=== PATIENT | male | born 1980 | race Caucasian/White ===

== ENCOUNTER 2019-08-16 13:47 | Inpatient (IN) | payer OTHER ==
[2019-08-16 17:46] VITALS: BMI 22.4
--- NOTE | 2019-08-16 18:36 | HP ---
COWS - Scale Resting Pulse: 0= NE 80 or Below Sweatin= No chills or Flushing Restless Observation: 0= Sits Still Pupil Size: 1= Pupils >than Normal Bone or Joint Aches: 0= None Runny Nose/ Eye Tearin= None GI Upset > 30mins: 0= None Tremor Observation: 1= Tremor Douglas, Not Seen Yawning Observation: 0= None Anxiety or Irritability: 0= None Goose Flesh Skin: 0=Smooth Skin COWS Score: 2 CIWA Score Nausea/Vomitin-No Nausea/No Vomiting Muscle Tremors: 1-None Visible, but Douglas Anxiety: 0-No Anxiety, at Ease Agitation: 0-Normal Activity Paroxysmal Sweats: No Perspiration Orientation: 0-Oriented Tacttile Disturbances: 0-None Auditory Disturbances: 0-None Visual Disturbances: 0-None Headache: 0-None Present CIWA-Ar Total Score: 1 - Admission Criteria [facility] Guidelines: Admission for Medically Managed Detox: Requires at least one of the followin. CIWA greater than 12 2. Seizures within the past 24 hours 3. Delirium tremens within the past 24 hours 4. Hallucinations within the past 24 hours 5. Acute intervention needed for co occurring medical disorder 6. Acute intervention needed for co occurring psychiatric disorder 7. Severe withdrawal that cannot be handled at a lower level of care (continued vomiting, continued diarrhea, abnormal vital signs) requiring intravenous medication and/or fluids 8. Admitting History and Physical - Admission History of Present Illness: 39 yo M no PMH, no PSH, NKDA presents for detox for heroin. Heroin : 1 bundle/ day x 1 yr. last OD 3 mo ago. no narcan kit. last use this am 4 bags I[facility] use SURESH: 6 pack/ day since 11 yo. last drink today oxy: 1 pay / day. 1 yr ago. last use yesterday cocaine: 2 mo ago. cigaretes 1 pk x 2-3 days. started 14 yo denies legal issues, apartment in [facility], [facility] support Admission ROS S - HPI Allergies/Adverse Reactions: Allergies Allergy/AdvReac Type Severity Reaction Status Date / Time No Known Allergies Allergy Verified 08/16/19 17:40 Exam Limitations: No Limitations - Ebola screening Do you have a fever: No - Review of Systems Constitutional: No Symptoms Reported EENT: reports: No Symptoms Reported Respiratory: reports: No Symptoms reported Cardiac: reports: No Symptoms Reported GI: reports: No Symptoms Reported Musculoskeletal: reports: No Symptoms Reported Psychiatric: reports: Judgement Intact, Mood/Affect Appropiate, Orientated x3 Patient History - Smoking Cessation Smoking history: Current every day smoker Have you smoked in the past 12 months: Yes Aproximately how many cigarettes per day: 0.5 Initiated information on smoking cessation: Yes 'Breaking Loose' booklet given: 08/16/19 - Substances abused Alcohol Substance route: Oral Frequency: Daily Amount used: RUM- 1PT Age of first use: 11 Date of last use: 08/16/19 Heroin Substance route: Inhalation Frequency: Daily Amount used: 10BAGS Age of first use: 38 Date of last use: 08/16/19 Other Other (specify): STR OXYCODONE- UNKNOWN DOSE Substance route: Oral Frequency: Daily Amount used: 2 TABS Age of first use: 38 Date of last use: 08/15/19 Crack Substance route: Smoking Frequency: Daily Amount used: $40 Age of first use: 38 Date of last use: 08/16/19 Admission Physical Exam [facility] - Vital Signs Vital Signs: Vital Signs - 24 hr 08/16/19 17:35 Temperature 97.1 F L Pulse Rate 69 Respiratory 18 Rate Blood Pressure 145/78 - Physical General Appearance: Yes: No Apparent Distress, Nourished HEENTM: Yes: Hearing grossly Normal, Normocephalic, Normal Voice, ERWIN Respiratory: Yes: Chest Non-Tender, Lungs Clear, Normal Breath Sounds, No Respiratory Distress, No Accessory Muscle Use Neck: Yes: No masses,lesions,Nodules Cardiology: Yes: Within Normal Limits, Regular Rhythm, Regular Rate, S1, S2. No : JVD, Murmur Abdominal: Yes: Normal Bowel Sounds, Non Tender, Soft. No: Distended Extremities: Yes: Normal Inspection, Non-Tender. No: Calf Tenderness Neurological: Yes: chipper operator II-XII NML intact, Fully Oriented Integumentary: Yes: Normal Color, Dry, Warm - Diagnostic (1) Heroin abuse Current Visit: Yes Status: Acute (2) Alcohol abuse Current Visit: Yes Status: Acute Cleared for Admission [facility] - Detox or Rehab [facility] Level of Care: Medically Managed Inpatient Rehab Admission - Rehab Decision to Admit Inpatient rehab admission?: No
[2019-08-16] MEDS ORDERED: METHOCARBAMOL 500 MG TABLET PO PRN (18:46)
[2019-08-16] MEDS ORDERED: MAGNESIUM CITRATE 300 ML BOTTLE PO PRN (18:46)
[2019-08-16] MEDS ORDERED: MENTHOL/PHENOL 1 EACH UD MM PRN (18:46)
[2019-08-16] MEDS ORDERED: ACETAMINOPHEN 325 MG TABLET (FP) PO PRN ×2 (18:46)
[2019-08-16] MEDS ORDERED: IBUPROFEN 400 MG TABLET (FP) PO PRN (18:46)
[2019-08-16] MEDS ORDERED: MAGNESIUM HYDROX 2400MG/30ML ORAL SUSPENSION 30 ML CUP PO PRN (18:46)
[2019-08-16] MEDS ORDERED: hydrOXYzine PAMOATE 25 MG CAPSULE (FP) PO PRN (18:46)
[2019-08-16] MEDS ORDERED: MAG HYDROX/AL HYDROX/SIMETH 30 ML UNIT-DOSE CUP PO PRN (18:46)
[2019-08-16] MEDS ORDERED: BISMUTH SUBSALICYLATE 524 MG/30 ML UD PO PRN (18:46)
[2019-08-16] MEDS ORDERED: cloNIDine HCL 0.1 MG TABLET PO PRN (20:01)
--- NOTE | 2019-08-16 20:01 | PN ---
Teaching Attending Note Name of Resident: Erica Hawkins ATTENDING PHYSICIAN STATEMENT I saw and evaluated the patient. I reviewed the resident's note and discussed the case with the resident. I agree with the resident's findings and plan as documented. SUBJECTIVE:39 y.o. male requesting detox from opiate use , reports this is his first attempt at detox . heroin : 1 bundle /day via [facility] denies IV use , latest use this afternoon. PMHX /PSHx : denies OBJECTIVE: wnwd Vital Signs - 24 hr 08/16/19 17:35 Temperature 97.1 F L Pulse Rate 69 Respiratory 18 Rate Blood Pressure 145/78 ASSESSMENT AND PLAN: OUD - observation for pt safety and detox when /if symptomatic.
[2019-08-16] MEDS ORDERED: THIAMINE HCL 100 MG TABLET (FP) PO SCH (22:00)
[2019-08-16] MEDS ORDERED: MELATONIN 5 MG TABLETS PO PRN (22:00)
[2019-08-17] MEDS ORDERED: NICOTINE 7 MG/24 HOURS TOPICAL PATCH TD SCH (10:00)
[2019-08-17] MEDS ORDERED: PRENATAL VITAMINS W/ FOLIC ACID TABLET (FP) PO SCH (10:00)
[2019-08-17 10:40] LABS: HEMATOCRIT 42.4 % (35.4-49); HEMOGLOBIN 14.2 GM/dL (11.7-16.9); MCH 27.4 pg (25.7-33.7); MCHC 33.6 g/dl (32.0-35.9); MEAN CELL VOLUME 81.4 fl (80-96); MEAN PLT VOLUME 7.6 fl (7.5-11.1); PLATELET COUNT 352 K/MM3 (134-434); RDW 13.6 % (11.9-15.9)
[2019-08-17 10:48] LABS: ALBUMIN 3.6 g/dl (3.4-5.0); BILIRUBIN,TOTAL 0.3 mg/dL (0.2-1); BLOOD UREA NITROGEN 12.8 mg/dL (7-18); CALCIUM 9.2 mg/dL (8.5-10.1); CREATININE 0.9 mg/dL (0.55-1.3); POTASSIUM 4.5 mmol/L (3.5-5.1); TOT PROT 6.9 g/dl (6.4-8.2)
[2019-08-17 11:29] VITALS: BP 130/82; PULSE 84; TEMP 97.7
--- NOTE | 2019-08-17 14:47 | PN ---
S CIWA - CIWA Score Nausea/Vomitin-No Nausea/No Vomiting Muscle Tremors: None Anxiety: 6 Agitation: 5 Paroxysmal Sweats: No Perspiration Orientation: 0-Oriented Tacttile Disturbances: 0-None Auditory Disturbances: 0-None Visual Disturbances: 0-None Headache: 0-None Present CIWA-Ar Total Score: 11 S COWS - Scale Resting Pulse: 1= [place] 81-100 Sweatin= No chills or Flushing Restless Observation: 3= Extraneous Movement Pupil Size: 0= Normal to Room Light Bone or Joint Aches: 0= None Runny Nose/ Eye Tearin= Nasal Congestion GI Upset > 30mins: 0= None Tremor Observation of Outstretched Hands: 0= None Yawning Observation: 0= None Anxiety or Irritability: 2=Irritable/Anxious Goose Flesh Skin: 0=Smooth Skin COWS Score: 7 [facility] Progress Note (SOAP) Subjective: Received pt this morning who appeared very anxious and requesting to be transferred to [address] [place] [address] because "6th floor gives me panic attacks and this room 666 bothers me". Also c/o nasal congestion with the severe anxiety. Informed pt staff will help him with switching to another room number. However, at about 10:00 A.M as medication was being called the patient left the unit exiting the door and left. Security located patient and brought him to the security office. This medical underwriter and his nurse along with the Nursing supervisor aluminum boat assembly, Ms Khushbu Paz went to see the patient who states "I just want to leave" and declined any intervention. Objective: 08/17/19 14:55 Vital Signs - 24 hr 08/16/19 08/16/19 08/17/19 17:35 21:37 00:30 Temperature 97.1 F L 97.9 F Pulse Rate 69 85 Respiratory 18 19 18 Rate Blood Pressure 145/78 119/65 08/17/19 08/17/19 07:07 11:28 Temperature 98.6 F 97.7 F Pulse Rate 63 84 Respiratory 18 18 Rate Blood Pressure 120/62 130/82 Laboratory Tests 08/17/19 08/17/19 08/17/19 07:30 07:30 07:30 WBC 11.0 H RBC 5.20 Hgb 14.2 Hct 42.4 MCV 81.4 MCH 27.4 MCHC 33.6 RDW 13.6 Plt Count 352 MPV 7.6 Sodium 138 Potassium 4.5 Chloride 107 Carbon Dioxide 25 Anion Gap 6 L BUN 12.8 Creatinine 0.9 Est GFR (CKD-EPI)AfAm 122.52 Est GFR (CKD-EPI)NonAf 105.71 Random Glucose 118 H Calcium 9.2 Total Bilirubin 0.3 AST 25 ALT 57 Alkaline Phosphatase 80 Total Protein 6.9 Albumin 3.6 RPR Titer Nonreactive Alert o x 3 nad oob ambulating with steady gait. Assessment: 08/17/19 14:55 ANA Noncompliant with CD treatment. Plan: Pt declined detox treatment Signed out AMA
--- NOTE | 2019-08-17 15:00 | DS ---
[facility] Detox Discharge Summary Admission Date: 08/16/19 Discharge Date: 08/17/19 - History Present History: Alcohol Dependence, Cocaine Dependence, Opioid Dependence Additional Comments: Pt is a 39 y/o male admitted to detox yesterday and walked off the unit declining treatment on intervention. All efforts to encourage pt to stay in treatment failed before he walked off the unit unsuspectedly. However once unit alarmed, Pt was located by security and secured till continuity writer, his nurse and mechanical maintenance supervisor Khushbu Paz met with patient who was verbally abrasive and did not want to speak to staff but just wants to leave. Pertinent Past History: PMHx:Denies Psych Hx: Denies - Physical Exam Results Vital Signs: Vital Signs Temperature 97.7 F 08/17/19 11:28 Pulse Rate 84 08/17/19 11:28 Respiratory Rate 18 08/17/19 11:28 Blood Pressure 130/82 08/17/19 11:28 O2 Sat by Pulse Oximetry (%) Alert o x 3, no s/h/i verbalized nad oob ambulating with steady gait. Pertinent Admission Physical Exam Findings: Laboratory Tests 08/17/19 08/17/19 08/17/19 07:30 07:30 07:30 WBC 11.0 H RBC 5.20 Hgb 14.2 Hct 42.4 MCV 81.4 MCH 27.4 MCHC 33.6 RDW 13.6 Plt Count 352 MPV 7.6 Sodium 138 Potassium 4.5 Chloride 107 Carbon Dioxide 25 Anion Gap 6 L BUN 12.8 Creatinine 0.9 Est GFR (CKD-EPI)AfAm 122.52 Est GFR (CKD-EPI)NonAf 105.71 Random Glucose 118 H Calcium 9.2 Total Bilirubin 0.3 AST 25 ALT 57 Alkaline Phosphatase 80 Total Protein 6.9 Albumin 3.6 RPR Titer Nonreactive - Treatment Hospital Course: Discharged Condition Good Patient has Accepted a Rehab Referral to: Declined - Medication Discharge Medications: Ambulatory Orders NK [No Known Home Medication] 08/16/19 - Diagnosis (1) Alcohol abuse Status: Chronic (2) Heroin abuse Status: Chronic (3) Nicotine dependence Status: Chronic Qualifiers: Nicotine product type: cigarettes Substance use status: uncomplicated Qualified Code(s): F17.210 - Nicotine dependence, cigarettes, uncomplicated - AMA Did Patient Leave Against Medical Advice: Yes
--- NOTE | 2019-08-17 16:34 | EKG ---
Test Reason : Blood Pressure : / mmHG Vent. Rate : 071 BPM Atrial Rate : 071 BPM P-R Int : 148 ms QRS Dur : 098 ms QT Int : 402 ms P-R-T Axes : 060 041 023 degrees QTc Int : 436 ms NORMAL SINUS RHYTHM Possible posterior infaect ABNORMAL ECG Confirmed by MD LUKE, BEVERLY ([id number]) on 08/17/2019 4:33:42 PM Referred By: Confirmed By:BEVERLY BUTLER MD
== END 2019-08-17 10:20 | disposition left against medical advice (07) | DRG 770 ==
LOC: YASAS 13:47 → Y6N 19:45
PROVIDERS: ADMIT Allergy & Immunology; ATTEND Allergy & Immunology
PROC: HZ2ZZZZ Detoxification Services for Substance Abuse Treatment (ICD-10-PCS; principal; 2019-08-16)
DX: F11.23 Opioid dependence with withdrawal (principal); F10.230 Alcohol dependence with withdrawal, uncomplicated; F17.210 Nicotine dependence, cigarettes, uncomplicated; Z91.19 Patient's noncompliance with other medical treatment and regimen
CPT/HCPCS: 36415; 80053; 85027; 86593; 93005; 93010; J0735